=== PATIENT | female | born 1960 | race Caucasian/White ===

== ENCOUNTER 2023-02-19 15:35 | Emergency (ER) | payer OTHER, SELFPAY ==
--- NOTE | ~2023-02-19 | XR_ITS ---
XR ribs LT 2V DATE: 02/19/2023 16:39 INDICATION: Left anterior rib pain after chiropractic adjustment TECHNIQUE: 3 views of left ribs COMPARISON: None FINDINGS: No displaced rib fracture is evident no bone destruction. The left lung appears clear. No pleural effusion or pneumothorax. Degenerative change of the thoracic and lumbar spine. Osteopenia. IMPRESSION: No displaced left rib fracture is evident Reviewed, dictated and finalized at location A.
--- NOTE | 2023-02-19 15:40 | ED.GENADULT ---
HPI - General Adult General Chief complaint: Unspecified Stated complaint: left rib pain Time Seen by Provider: 02/19/23 16:00 Source: patient and RN notes reviewed Mode of arrival: ambulatory Limitations: no limitations History of Present Illness HPI narrative: 62-year-old female presents with concern for pain under her left breast. Reports she was getting adjusted chiropractor last night, she was lying on her stomach and when he put pressure on her back she felt a pop in her rib. Reports she has broken a rib red area in the past. Reports pain with breathing, movement. Denies shortness of breath. MD complaint: Rib pain Related Data Home Medications Medication Instructions Recorded Confirmed insulin aspart subcut 02/19/23 02/19/23 (niacinamide)(U-100) 100 unit/mL(3 mL) subcutaneous pen (Fiasp FlexTouch U-100 Insulin) omeprazole 40 mg capsule,delayed 40 mg DAILY 02/19/23 02/19/23 release Allergies Allergy/AdvReac Type Severity Reaction Status Date / Time metformin Allergy Unknown Unknown Verified 02/19/23 15:52 Sulfa (Sulfonamide Allergy Unknown Skin Verified 02/19/23 15:52 Antibiotics) Reaction Honey Bee Allergy Mild Unknown Uncoded 02/19/23 15:52 Review of Systems Review of Systems: CONSTITUTIONAL: Denies malaise, chills, sweats, or fever. CARDIOVASCULAR: Denies chest pain, palpitations, or edema. RESPIRATORY: Denies cough or dyspnea. SKIN: Denies rash or itching, bruising, redness, swelling. MUSCULOSKELETAL: Reports left anterior rib pain NEUROLOGIC: Denies numbness, weakness All systems reviewed & are unremarkable except as noted in HPI and below PMFSH Surgical History Surgical History (Updated 10/16/20 @ 14:18 by Enid Maher, [facility]) History of knee replacement 2011 2008 Knee scope 2010 Family History Family History (Updated 02/16/18 @ 09:23 by DOCTOR UNKNOWN) Father Diabetes mellitus Family history of cardiovascular disease Acute myocardial infarction Family history of lung cancer Mother Diabetes mellitus Sibling Diabetes mellitus Social History Social History Smoking status: Former smoker Smoking end date: 11/28/14 Alcohol intake: never Comments At time of signature, agree with nursing past medical, surgical, social and family history. There is no relevant family history pertinent to the presenting complaint Exam Narrative: GENERAL: Well-appearing, well-nourished, and in no acute distress. HEAD: Normocephalic, atraumatic. EYES: PERRLA, sclera clear, and EOMI. No nystagmus. ENT: Nares clear, turbinates pink, no rhinorrhea or epistaxis. Mucous membranes moist. NECK: Supple. CHEST: No respiratory distress. Clear to auscultation. No bony deformities, no asymmetry. Speaks in full sentences. Tenderness under the left breast HEART: Regular rate and rhythm. No murmur heard. SKIN: Warm, dry, no visible rash. NEURO: Alert and oriented x3. PSYCH: Normal mood and affect Course Course Emergency Course: Patient is aware of diagnosis, understands and agrees to treatment plan. Anticipatory guidance given. Patient agrees to follow-up as directed and is aware of reasons to seek care at the emergency department. Portions of this record may have been created with voice recognition software Level of Care: Express Care Visit Vital Signs Vital signs: Reviewed. Medical Decision Making MDM Narrative Medical decision making narrative: Exam findings and imaging show no acute concerns or changes; patient is non-toxic appearing and is in no distress. Patient is appropriate for outpatient treatment and follow-up. Imaging Data My impression: Images reviewed, interpreted by radiologist, agree, see report. Radiologist's impression: XR ribs LT 2V DATE: 02/19/2023 16:39 INDICATION: Left anterior rib pain after chiropractic adjustment? TECHNIQUE: 3 views of left ribs? COMPARISON: None? FINDINGS: No displaced rib fracture is evident no bone destr
[2023-02-19 15:45] VITALS: BP 155/71; PULSE 83; RESP 16; TEMP 37.3; O2SAT 98
== END 2023-02-19 17:03 | disposition home or self-care (01) ==
PROVIDERS: Emergency Provider Nurse Practitioner
DX: R07.81 Pleurodynia (principal)
CPT/HCPCS: 71100; 99213; G0463